=== PATIENT | female | born 1940 | race Caucasian/White ===

== ENCOUNTER 2018-07-16 07:07 | Observation (INO) ==
[2018-07-16] MEDS ORDERED: Bupivacaine/Epinephrine 0.5% Inj 50 ML Vial ONE (07:09)
[2018-07-16] MEDS ORDERED: Thrombin Topical Soln 5,000 UNIT Vial TOPICAL ONE (07:09)
[2018-07-16] MEDS ORDERED: methylPREDNISolone acetate 40 MG/ML VIAL ONE (07:10)
[2018-07-16] MEDS ORDERED: Gelatin Size 100 Topical Foam ONE (07:10)
[2018-07-16] MEDS ORDERED: Propofol Inj 500 MG/50 ML Vial ONE (07:40)
[2018-07-16] MEDS ORDERED: Sugammadex Inj 200 MG/2 ML Vial IV.PUSH ONE (07:40)
[2018-07-16] MEDS ORDERED: Chlorhexidine Gluconate 2% 1 Pack (2 Cloths) TOPICAL ONE (07:58)
[2018-07-16] MEDS ORDERED: Metoprolol Tartrate 25 MG Tablet PO ONE (07:58)
[2018-07-16] MEDS ORDERED: Sodium Chlor 0.9% Inj 500 ML IV.SIG SCH (08:00)
[2018-07-16] MEDS ORDERED: Sodium Chlor 0.9% Inj 250 ML ONE (08:03)
[2018-07-16] MEDS ORDERED: Famotidine PF Inj 20 MG/2 ML Vial ONE (08:22)
[2018-07-16] MEDS ORDERED: ceFAZolin 2 GM Premix Inj 2 GM/50 ML PIGGYBACK IV.SIG ONE (08:25)
[2018-07-16] MEDS: Sod Chloride 0.9% Inj 1,000 ML IV.SIG SCH (08:31)
[2018-07-16 08:35] LABS: Activated Partial Thrombo Time 24.7 sec (24.3-30.1); Prothrombin Time 10.5 sec (9.8-11.6)
[2018-07-16] MEDS ORDERED: Lidocaine PF 1% Inj 5 ML Syringe OTHER ONE (08:45)
[2018-07-16] MEDS ORDERED: Labetalol HCl Inj 100 MG/20 ML Vial IV.CONT ONE (08:45)
[2018-07-16] MEDS ORDERED: Vancomycin Inj 1,000 MG in Sodium Chlor 0.9% Inj 250 ML IV.SIG SCH (09:00)
[2018-07-16] MEDS ORDERED: Artificial Tears Opth Oint 3.5 GM Tube ONE (09:06)
[2018-07-16] MEDS ORDERED: fentaNYL Citrate Inj 100 MCG/2 ML Ampul ONE (11:20)
--- NOTE | 2018-07-16 11:36 | XR ---
EXAM DATE: 07/16/2018 12:00 AM EDT AGE/SEX: 78 years / Female INDICATIONS: Herniated disk, back pain, laminectomy. CLINICAL DATA: This is the patient's initial encounter. Patient reports that signs and symptoms have been present for 1 day and indicates a pain score of Nonresponsive. MEDICAL/SURGICAL HISTORY: None. None. COMPARISON: POI, XR SPINE LUMBAR W/ FLEX AND EXT (MIN 4 VIEWS), 07/05/2018. . FINDINGS: A single crosstable lateral view of the lower lumbar spine was obtained and demonstrates a metal loca lization device posterior to the L3-4 interspace. Degenerative disc changes are again noted at the L5 -S1 level. The study is labeled assuming 5 nonrib-bearing lumbar-type vertebra. CONCLUSION: Negative localization exam as described. Electronically signed by: Zaire Gaffney MD 07/16/2018 11:35 AM EDT
[2018-07-16] MEDS ORDERED: Bisacodyl 10 MG Supp RECTAL PRN (11:40)
--- NOTE | 2018-07-16 11:51 | P.OP ---
Preoperative Diagnosis: LUMBAR SPINAL STENOSIS Postoperative Diagnosis: LUMBAR SPINAL STENOSIS Date of procedure: 07/21/18 Procedure: L3-L4 left lumbar hemilaminectomy, mesiofacetectomy, foraminotomy, with microsurgical resection of the disk Surgeon: Emeterio Hay MD It Support Technician: Karina Helms Pathology: none sent Operation and Findings: INDICATIONS FOR THE SURGICAL PROCEDURE The patient is a 78 year old year-old female who presented with intractable mechanical back pain and clinical evidence of left lower extremity radiculopathy. The patient was found to have significant lumbar spinal stenosis with significant mass effect on the neural structures which correlated with her clinical symptoms. The patient has failed maximum nonsurgical management including multiple modalities of conservative treatment as well as pain management interventions by an interventional pain specialist. A surgical decompression was indicated as a last resort. The [id number] details of the procedure, indications, alternatives, risks and potential complications were fully discussed with the patient. The patient fully understood. All the questions were answered. No guarantees were given. The patient voiced requesting the procedure and provided informed consents. The patient was offered the alternative of delaying the procedure and continuing with nonsurgical management. DETAILS OF THE SURGICAL PROCEDURE After the induction of general anesthesia, endotracheal intubation was performed. A Cheng catheter, bilateral SUMMER hose and sequential compression devices were placed and kept throughout the procedure. The patient was positioned prone on a Faustino table over a Eloy frame. All pressure points were carefully padded with eggcrate mattress. The eyes were tapped shut after ointment was applied by the anesthesiologist to prevent corneal abrasion. A Artis hugger was placed over the exposed lower body to maintain control of the core body temperature. The lower lumbar region was prepped and draped in the usual sterile fashion. A spinal needle was placed for localization and an x- ray performed with a C-arm. A skin incision was made in the midline over the spinous processes L3-L4.with a #10 blade. Small subcutaneous bleeders were controlled with a bipolar and the dissection was carried out through the lumbar fascia exposing the spinous processes. A subperiostial dissection was performed with a Pablo elevator and a Bovie over the Left L3-L4 spinous process lamina and facets. A microdiscectomy self-retaining retractor was placed on the incision and an x-ray was obtained with an instrument placed underneath the lamina of L3. At this point in the procedure the operating microscope was draped in the usual sterile fashion and brought to the field. The rest of the surgical procedure was performed using microsurgical dissection technique with exception of the closure. Once the level was confirmed, a left decompressive laminectomy was performed at L3-L4 using the TPS drill with an 4mm drill bit. A medial facetectomy was performed and the superior free border of the ligamentum flavum was dissected with a ligament dissector and removed with a thin footplate 2 mm Kerrison. Upon completion of the medial facetectomy, the L4 nerve root was identified and followed towards its exit in the foramen. Epidural veins located laterally to the dural sac were coagulated with a bipolar forceps and incised with microscissors. Gentle medial retraction of the dural sac allowed inspection of the disc space. Ms Otero had severe facet arthropathy with hypertrhopy of the joint facets and ligamentum flavum resulting in mass effect over the dural sac and nerve roots. In addition, there was a broad-based disc protusion, contributing to the stenosis. The annulus fibrosus of the disc was coagulated with the bipolar and incised with an 11 blade. The extruded disc was carefully dissected from the surrounding tissue and removed with pituitary forceps. Then, a microdiscectomy was carried out in the standard fashion using straight and up-biting pituitary forceps. A good decompression of the dural sac and nerve root was achieved. The exit of the nerve root was inspected for residual disc fragments and hemostasis was secured with the bipolar. The incision was irrigated with a large amount of saline solution. A Valsalva maneuver failed to show any cerebrospinal fluid leak or bleeding. The decompression was assessed again and found to be satisfactory. The incision was then closed in layers. The fascia was closed with 0 Vicryl sutures in an interrupted fashion. The superficial fascia was closed with 0 Vicryl sutures. The fascia was infiltrated with 0.5% Marcaine with epinephrine 1:100,000 dilution. The subcutaneous tissue was irrigated then closed with 0 Vicryl and 3 -0 Vicryl. The skin was closed with 4-0 running subcuticular Vicryl. A sterile dressing was applied. At the end of the procedure, the sponge, needle and instrument counts were all correct. Estimated blood loss was less than 60 cc. No blood transfusion was given. No intraoperative complications occurred. The patient received prophylactic antibiotics. The patient was then extubated and transferred to the recovery room in stable condition.
[2018-07-16] MEDS ORDERED: *morphine SULFATE 4 MG/ML PERIprocedure ONLY ONE (12:01)
[2018-07-16] MEDS: ceFAZolin 2 GM Premix Inj 2 GM/50 ML PIGGYBACK IV.SIG SCH (17:09)
[2018-07-16] MEDS: Pantoprazole Sodium 20 MG DR Tablet PO SCH (20:00)
[2018-07-16] MEDS: Senna/Docusate Sodium 8.6/50 MG Tablet PO SCH (20:00)
[2018-07-16] MEDS: Estradiol 1 MG Tablet PO SCH (20:03)
[2018-07-17] MEDS: ceFAZolin 2 GM Premix Inj 2 GM/50 ML PIGGYBACK IV.SIG SCH ×2 (01:37→09:20)
[2018-07-17] MEDS ORDERED: Lisinopril 20 MG Tablet PO SCH (09:00)
[2018-07-17] MEDS ORDERED: FISH OIL PO SCH (09:00)
[2018-07-17] MEDS ORDERED: Celecoxib 200 MG Capsule PO SCH (09:00)
[2018-07-17 09:06] VITALS: RESP 18; TEMP 97.5
[2018-07-17] MEDS: Estradiol 1 MG Tablet PO SCH (09:18)
[2018-07-17] MEDS: Senna/Docusate Sodium 8.6/50 MG Tablet PO SCH (09:19)
[2018-07-17] MEDS: Pantoprazole Sodium 20 MG DR Tablet PO SCH (09:19)
[2018-07-17] MEDS: Sod Chloride 0.9% Inj 1,000 ML IV.SIG SCH (09:37)
--- NOTE | 2018-07-17 11:04 | P.DS ---
Date of admission: 07/16/18 14:33 Primary care physician: Marilin Munoz Brief History from admission: Patient suffered from lumbar radicular pain. She presents to [place] to undergo lumbar decompressive laminectomy. DS: Medications - Discharge Medications Prescriptions: hydrocodone-acetaminophen 1 tab PO Q4-6H PRN 3 Days #18 tab PRN Reason: Pain Scale 6 To 10 ibuprofen 800 mg PO Q6HR PRN #21 tab PRN Reason: Pain DS: Summary Hospital Course: Ms. Otero underwent L3-L4 left lumbar hemilaminectomy, mesiofacetectomy, foraminotomy, with microsurgical resection of the disk on 07/16/18. Her surgery went well without complications, she will be discharged home in stable conditions. Wound care and activity restrictions were discussed. - Time Spent with Patient Total time spent providing and/or coordinating discharge services: Less than 30 minutes - Quality: VTE Deep Vein Thrombosis/Pulmonary Embolism Present on Admission: No Exam Vital signs: Vital Signs 07/16/18 11:15 07/16/18 11:30 07/16/18 11:45 Temperature 97.5 F L Pulse Rate 67 59 L 55 L Respiratory Rate 16 16 12 Blood Pressure 114/71 122/68 132/64 Pulse Oximetry 95 97 98 07/16/18 12:00 07/16/18 12:15 07/16/18 12:35 Temperature 97.8 F 97.7 F Pulse Rate 59 L 57 L 60 Respiratory Rate 12 14 16 Blood Pressure 133/61 124/65 121/62 Pulse Oximetry 97 97 93 L 07/16/18 14:09 07/16/18 14:39 07/16/18 16:00 Temperature 97.1 F L Pulse Rate 64 Respiratory Rate 18 18 18 Blood Pressure 121/60 Pulse Oximetry 96 07/16/18 20:00 07/16/18 20:22 07/17/18 00:00 Temperature 97.2 F L 97.8 F Pulse Rate 61 59 L Respiratory Rate 18 18 18 Blood Pressure 122/58 L 114/55 L Pulse Oximetry 98 98 07/17/18 00:35 07/17/18 04:00 07/17/18 05:25 Temperature 97.6 F Pulse Rate 53 L Respiratory Rate 18 17 17 Blood Pressure 131/60 Pulse Oximetry 99 07/17/18 08:00 Temperature 97.5 F L Pulse Rate 69 Respiratory Rate 18 Blood Pressure 132/60 Pulse Oximetry 97 Intake & Output 07/16/18 07/17/18 07/17/18 18:59 06:59 18:59 Intake Total 2059 1020 / 1020 970 / 970 Output Total 50 / 50 Balance 2009 1020 / 1020 970 / 970 Weight 91.2 kg Intake: IV 80 / 80 1020 / 1020 970 / 970 NS + KCl 20 mEq Inj 1,000 ML @ 30 / 30 970 / 970 970 / 970 100 mls/hr IV.CONT .Q10H REBECCA Rx #:[id number] Ancef 2 GM Premix Inj 2 gm In 50 / 50 50 / 50 50 ml @ 100 mls/hr IV.SIG Q8H REBECCA Rx#:[id number] Oral 480 / 480 Anesthesia Amount 1500 / 1500 Output: Urine 0 / 0 Estimated Blood Loss 50 / 50 Other: # Voids 3 Date of Last Bowel Movement 07/16/18 07/16/18 07/16/18 # Bowel Movements 0 Weight On Admission 91.2 kg Results Procedures completed during hospitalization: Date of procedure: - Impressions ITS Impressions Lumbar Spine X-Ray 07/16/18 00:00 CONCLUSION: Negative localization exam as described. Discharge Plan - Discharge Disposition Patient Disposition: 01 Discharge Home - Discharge Condition Condition: Good - Discharge Order Discharge Orders: Discharge Order (Routine); Ordered 07/17/18 Ordered By: Kathy Milner - Physicians Team Primary Care Provider: Marilin Munoz Attending Provider: Emeterio Hay - Rxs /Orders / Referrals /Forms Prescriptions: New hydrocodone-acetaminophen 10-325 mg Tablet 1 tab PO Q4-6H PRN (Reason: Pain Scale 6 To 10) 3 Days Qty: 18 RF: 0 ibuprofen 800 mg Tablet 800 mg PO Q6HR PRN (Reason: Pain) Qty: 21 RF: 0 Continue albuterol sulfate aspirin 81 mg Tablet,Delayed Release (Dr/Ec) 81 mg PO DAILY celecoxib [Celebrex] 200 mg Capsule 200 mg PO DAILY cetirizine [Zyrtec] 10 mg Capsule 10 mg PO DAILY estradiol 0.5 mg Tablet 1 tab PO BID Fish Oil 1000 mg 1 tab PO DAILY lisinopril 40 mg Tablet 40 mg PO DAILY multivitamin [Daily Multi-Vitamin] Tablet 1 tab PO DAILY omeprazole 20 mg Capsule,Delayed Release(Dr/Ec) 1 tab PO BID red yeast rice 600 mg Capsule 600 mg PO BID Referrals: Marilin Munoz MD [Primary Care Provider] - See Instructions - Discharge Instructions Patient Printed Instructions: Hydrocodone/Acetaminophen (By mouth), Laminectomy (DC), Fall Prevention for Older Adults (DC), Bandage Change (DC), Lumbar Corset (DC) Additional Instructions: Follow up with Dr Hay as instructed, Please call the office to confirm appointment. Notify Dr Hay if your pain is not being controled by your current pain medication. Wear your brace when ever your ambulating or sitting up. Remember, No Heavy Lifting, No Bending, Turning, Twisting or Driving ti; cleared by your surgeon. Dont forget to take the medications you did not take this morning. (Estradol, Protonix, Zyrtec) - Post Discharge Care Plan Care Plan Goals: Your Health Problems: Goals to Promote Your Health: * To prevent worsening of your condition * To maintain your health at the optimal level Directions to Meet Your Goals: * Take your medications as prescribed * Follow your dietary instruction * Follow activity as directed * Keep your appointments as scheduled * Take your immunizations and boosters as scheduled * If your symptoms worsen call your PCP * If no PCP go to Urgent Care or Emergency Room Smoking is dangerous to your health. Avoid second hand smoke. You may reach the 24-hour crisis hotline for domestic abuse at .
[2018-07-17 12:13] VITALS: BP 138/86; PULSE 64; O2SAT 95
== END 2018-07-17 12:05 | disposition home or self-care (01) ==
LOC: HSDC 07:07 → N06 07:07
PROVIDERS: ADMIT Neurological Surgery; ATTEND Neurological Surgery